=== PATIENT | male | born 1965 | race Two or more races ===

== ENCOUNTER 2018-12-10 11:48 | Emergency (ER) | payer OTHER ==
[~2018-12-10] VITALS: Ht 175.3 cm; Wt 98.9 kg
[~2018-12-10 11:48] MED LIST: DOLOGESIC CAPLE1 TAB PO; TUSSIONEX PENNKI5 ML PO
[2018-12-10] MEDS ORDERED: LOSARTAN POTAS100 MG (12:15)
== END 2018-12-10 18:16 | disposition home or self-care (01) ==
LOC: ER 11:48
DX: M79.651 Pain in right thigh (principal)

== ENCOUNTER 2019-05-05 10:49 | Outpatient (CLI) | payer OTHER ==
[~2019-05-05 10:49] MED LIST changes: +LOSARTAN POTAS100 MG
== END 2019-05-05 11:04 | disposition home or self-care (01) ==
LOC: LAB 10:49
DX: E78.49 Other hyperlipidemia (principal); E55.9 Vitamin D deficiency, unspecified; Z00.00 Encounter for general adult medical examination without abnormal findings; R42 Dizziness and giddiness; R10.2 Pelvic and perineal pain; N42.89 Other specified disorders of prostate; M54.89 Other dorsalgia

== ENCOUNTER 2019-07-13 09:50 | Emergency (ER) | payer OTHER ==
[~2019-07-13] VITALS: Ht 175.3 cm; Wt 108.0 kg
== END 2019-07-13 12:19 | disposition home or self-care (01) ==
LOC: ER 09:50
DX: R07.89 Other chest pain (principal)

== ENCOUNTER 2019-07-19 14:35 | Emergency (ER) | payer OTHER ==
[~2019-07-19] VITALS: Ht 175.3 cm; Wt 108.0 kg
[2019-07-19] MEDS ORDERED: DICLOFENAC SODI75 MG PO (17:37)
== END 2019-07-19 17:44 | disposition home or self-care (01) ==
LOC: ER 14:35
DX: S80.02XA Contusion of left knee, initial encounter (principal); S80.01XA Contusion of right knee, initial encounter; M12.562 Traumatic arthropathy, left knee; W18.09XA Striking against other object with subsequent fall, initial encounter; Y93.9 Activity, unspecified; Y92.89 Other specified places as the place of occurrence of the external cause; Y99.8 Other external cause status

== ENCOUNTER 2020-09-22 07:04 | Day surgery (SDC) | payer OTHER ==
[~2020-09-22 07:04] MED LIST changes: +DICLOFENAC SODI75 MG PO
== END 2020-09-22 14:50 | disposition home or self-care (01) ==
LOC: AMB-ENDOS 07:04
PROVIDERS: ATTEND Colon & Rectal Surgery
DX: D12.2 Benign neoplasm of ascending colon (principal); D12.3 Benign neoplasm of transverse colon; Z20.822 Contact with and (suspected) exposure to COVID-19; Z12.11 Encounter for screening for malignant neoplasm of colon

== ENCOUNTER 2021-10-25 12:13 | Outpatient (CLI) | payer OTHER | END 2021-10-25 12:15 | disposition home or self-care (01) | LOC: RAD 12:13 | DX: M06.4 Inflammatory polyarthropathy (principal); M81.0 Age-related osteoporosis without current pathological fracture ==

== ENCOUNTER 2022-01-04 13:36 | Emergency (ER) | payer OTHER ==
[~2022-01-04] VITALS: Ht 175.3 cm; Wt 107.0 kg
[2022-01-04] MEDS ORDERED: CEPHALEXIN500 MG PO (14:33)
== END 2022-01-04 14:57 | disposition home or self-care (01) ==
LOC: ER 13:36
DX: L03.114 Cellulitis of left upper limb (principal); I10 Essential (primary) hypertension

== ENCOUNTER 2024-08-22 16:43 | Emergency (ER) | payer OTHER ==
[~2024-08-22] VITALS: Ht 175.3 cm; Wt 111.1 kg
[~2024-08-22 16:43] MED LIST changes: +CEPHALEXIN500 MG PO
[2024-08-22] MEDS ORDERED: FENOFIBRATE160 MG PO (16:59)
[2024-08-22] MEDS ORDERED: PEPCID AC20 MG PO (18:59)
[2024-08-22] MEDS ORDERED: BENADRYL ALLERG50 MG PO (18:59)
[2024-08-22] MEDS ORDERED: MEDROLPACK PO (18:59)
[2024-08-22] MEDS ORDERED: FAMOTIDINE/PF 20 MG/2 ML VIAL IV ONE (19:00)
[2024-08-22] MEDS ORDERED: DIPHENHYDRAMINE HCL 50 MG/ML VIAL 1ML IM ONE (19:00)
[2024-08-22] MEDS ORDERED: METHYLPREDNISOLONE SOD SUCC 125 MG VIAL IM ONE (19:00)
== END 2024-08-22 19:26 ==
LOC: ER 16:44
DX: R22.0 Localized swelling, mass and lump, head (principal); T78.40XA Allergy, unspecified, initial encounter; I10 Essential (primary) hypertension; Z88.8 Allergy status to other drugs, medicaments and biological substances

== ENCOUNTER 2025-01-20 11:37 | Outpatient (CLI) | payer OTHER ==
[~2025-01-20 11:37] MED LIST changes: +BENADRYL ALLERG50 MG PO; +FENOFIBRATE160 MG PO; +MEDROLPACK PO; +PEPCID AC20 MG PO
== END 2025-01-20 11:48 | disposition home or self-care (01) ==
LOC: TOM 11:37
PROVIDERS: ATTEND Internal Medicine
DX: M54.17 Radiculopathy, lumbosacral region (principal)